=== PATIENT | male | born 1950 | race Caucasian/White ===

== ENCOUNTER → 2016-10-23 | Emergency (ER) | payer MEDICARE ==
[~2016-10-23] VITALS: Ht 182.9 cm; Wt 90.7 kg
[~2016-10-23] MED LIST: ALBUTEROL2.5 MG/3 M INH; ALDACTONE25 MG PO; ASPIRIN81 MG PO; ATORVASTATIN CA20 MG PO; AUGMENTIN 875-1 EACH PO; CALCIUM CARBON600 MG PO; CALCIUM500 M1 PO; CARVEDILOL3.125 MG PO; CLOPIDOGREL75 MG PO; COREG12.5 MG PO; CORICIDIN HBP1 EAC3 PO; COUMADIN2.5 MG PO; DEXAMETHASONE2 MG PO; FISH OIL 1,0001 EAC3 PO; FUROSEMIDE20 MG PO; GLUCOTROL XL5 MG PO; HUMALOG100 UNIT/2 SUB-Q; IRON325 M1 PO; KONSYL6 GM PO; LANTUS100 UNITS/ SUB-Q; LASIX20 MG PO; LEVETIRACETAM750 MG PO; LEVOTHYROXINE100 MCG PO; LEVOTHYROXINE25 MCG PO; LISINOPRIL10 MG PO; LISINOPRIL2.5 MG PO; MAGNESIUM OXID400 MG PO; METAMUCIL0.4 GM PO; METHYLPREDNISOLO4 M1 PO; MIRALAX119 GM PO; PANTOPRAZOLE SO40 MG PO; PLAVIX75 MG PO; POTASSIUM CHLO10 ME1 PO; POTASSIUM CHLO10 MEQ PO; SPIRONOLACTONE25 MG PO; TOUJEO SOL300 UNIT/1 SUB-Q; TUJEO; TYLENOL325 MG PO; VENTOLIN HFA18 GM INH; VITAMIN D1000 UNI1 PO; XANAX0.5 MG PO
--- NOTE | 2016-10-23 14:33 | NUR ---
ED STAFF REQUESTED I MEET WITH FAMILY. PT IS LEAVING TO [facility] VIA [facility]. MET WITH INDU AND DAUGHTER MAYUR AND G.SON. INFORMED THEM ON WHAT TO EXPECT, PRAYED WITH THEM AND STAYED UNTIL PT LEFT FOR [facility]. ALSO GAVE FAMILY LIFE [employer] LIST FOR ITEMS TO PACK TO TAKE WITH THEM. GOD BLESS
--- NOTE | 2016-10-23 19:27 | EKG ---
[facility] [address] [address] [place], [place] [address] Signed Normal sinus rhythm Left axis deviation Abnormal ECG No previous ECGs available Confirmed by LAMAR CHEEK MD ([id number]) on 10/23/2016 7:26:48 PM Electronically Signed By: LAMAR CHEEK MD 10/23/16 192 PATIENT NAME: JAZMYNE MARTINES SR Electrocardiogram DATE OF : 46 PHYSICIAN: LAMAR CHEEK MD REPORT #: [id number] REPORT IS CONFIDENTIAL AND NOT TO BE RELEASED WITHOUT AUTHORIZATION
== END ==
LOC: ED 12:53
DX: I61.1 Nontraumatic intracerebral hemorrhage in hemisphere, cortical (principal); D68.318 Other hemorrhagic disorder due to intrinsic circulating anticoagulants, antibodies, or inhibitors; E11.9 Type 2 diabetes mellitus without complications; I10 Essential (primary) hypertension; Z79.82 Long term (current) use of aspirin; Z79.84 Long term (current) use of oral hypoglycemic drugs; Z79.899 Other long term (current) drug therapy
CPT/HCPCS: 71010; 80053; 84484; 85025; 85610; 85730; 93005; 93010; 96374; 99291; J1100

== ENCOUNTER 2016-11-21 06:20 | Emergency (ER) | payer MEDICARE ==
[~2016-11-21] VITALS: Ht 182.9 cm; Wt 84.4 kg
[~2016-11-21 06:20] MED LIST changes: -ALBUTEROL2.5 MG/3 M INH; -AUGMENTIN 875-1 EACH PO; -CALCIUM CARBON600 MG PO; -CALCIUM500 M1 PO; -CARVEDILOL3.125 MG PO; -CLOPIDOGREL75 MG PO; -CORICIDIN HBP1 EAC3 PO; -COUMADIN2.5 MG PO; -DEXAMETHASONE2 MG PO; -FISH OIL 1,0001 EAC3 PO; -FUROSEMIDE20 MG PO; -HUMALOG100 UNIT/2 SUB-Q; -KONSYL6 GM PO; -LANTUS100 UNITS/ SUB-Q; -LASIX20 MG PO; -LEVETIRACETAM750 MG PO; -LEVOTHYROXINE25 MCG PO; -LISINOPRIL2.5 MG PO; -MAGNESIUM OXID400 MG PO; -METHYLPREDNISOLO4 M1 PO; -MIRALAX119 GM PO; -PANTOPRAZOLE SO40 MG PO; -POTASSIUM CHLO10 ME1 PO; -POTASSIUM CHLO10 MEQ PO; -SPIRONOLACTONE25 MG PO; -TOUJEO SOL300 UNIT/1 SUB-Q; -TUJEO; -TYLENOL325 MG PO; -VENTOLIN HFA18 GM INH; -XANAX0.5 MG PO
[2016-11-21] MEDS ORDERED: CALCIUM CARBON600 MG PO (06:38)
[2016-11-21] MEDS ORDERED: DEXAMETHASONE2 MG PO (06:40)
[2016-11-21] MEDS ORDERED: LANTUS100 UNITS/ SUB-Q (06:43)
[2016-11-21] MEDS ORDERED: MIRALAX119 GM PO (06:44)
[2016-11-21] MEDS ORDERED: LEVETIRACETAM750 MG PO (06:46)
[2016-11-21] MEDS ORDERED: VENTOLIN HFA18 GM INH (10:20)
--- NOTE | 2016-11-21 14:19 | NUR ---
MET WITH PT AND FAMILY IN ED. PT WAS ALERT AND RELATIVELY ORIENTED. INDU AND DAUGHTER MAYUR SEEMED STRESSED AND CONCERNED. PT WAS DC'D FROM [facility] YESTERDAY, WAS IN DISTRESS TODAY. WAITING FOR TESTS I STAYED AND COMFORTED THE FAMILY. PT GIVEN ALBUTEROL AND SEEMED TO HELP. HE SAID HE WAS NOT IN ANY PAIN- DID NOT BELIEVE HIM. PT DC'D WILL CONTINUE TO TRACK AND CHECK. HAD PRAYER WITH PT AND FAMILY-THEY EXPRESSED THANKFULNESS.GOD BLESS
--- NOTE | 2016-11-21 21:56 | EKG ---
[facility] [address] [place] [address] Signed Sinus rhythm with occasional premature ventricular complexes Low voltage QRS Left anterior fascicular block Anterolateral infarct with ST-T elevation in Anterolateral leads. No reciprocal changes. Consider Acute Coronary Syndrome/ STEMI. Abnormal ECG When compared with ECG of 23-OCT-2016 13:13, Significant changes have occurred Confirmed by LAMAR CHEEK MD ([id number]) on 11/21/2016 9:55:52 PM Electronically Signed By: LAMAR CHEEK MD 11/21/16 2156 PATIENT NAME: MALCOLMJAZMYNE CONSTANTINO SR Electrocardiogram DATE OF : 46 PHYSICIAN: LAMAR CHEEK MD REPORT #: [id number] REPORT IS CONFIDENTIAL AND NOT TO BE RELEASED WITHOUT AUTHORIZATION
[2016-11-22] MEDS ORDERED: LASIX20 MG PO (06:42)
[2016-11-22] MEDS ORDERED: POTASSIUM CHLO10 MEQ PO (06:42)
[2016-11-22] MEDS ORDERED: ALBUTEROL2.5 MG/3 M INH (06:42)
[2016-11-24] MEDS ORDERED: FISH OIL 1,0001 EAC3 PO (14:46)
[2016-11-24] MEDS ORDERED: PLAVIX75 MG PO (14:47)
[2016-12-20] MEDS ORDERED: CORICIDIN HBP1 EAC3 PO (09:43)
[2017-01-09] MEDS ORDERED: LISINOPRIL10 MG PO (13:23)
[2017-01-09] MEDS ORDERED: SPIRONOLACTONE25 MG PO (13:24)
[2017-01-16] MEDS ORDERED: TUJEO (13:14)
[2017-01-16] MEDS ORDERED: POTASSIUM CHLO10 ME1 PO (13:15)
[2017-01-16] MEDS ORDERED: COUMADIN2.5 MG PO (13:16)
[2017-01-16] MEDS ORDERED: TOUJEO SOL300 UNIT/1 SUB-Q (13:16)
[2017-02-04] MEDS ORDERED: SPIRONOLACTONE25 MG PO (09:56)
[2017-02-06] MEDS ORDERED: TYLENOL325 MG PO (14:58)
[2017-02-06] MEDS ORDERED: CALCIUM500 M1 PO (14:59)
[2017-02-06] MEDS ORDERED: CARVEDILOL3.125 MG PO ×2 (15:00→15:18)
[2017-02-06] MEDS ORDERED: LEVOTHYROXINE25 MCG PO ×2 (15:02→15:20)
[2017-02-06] MEDS ORDERED: LISINOPRIL2.5 MG PO (15:07)
[2017-02-06] MEDS ORDERED: HUMALOG100 UNIT/2 SUB-Q (15:07)
[2017-02-06] MEDS ORDERED: MAGNESIUM OXID400 MG PO ×2 (15:08→15:19)
[2017-02-06] MEDS ORDERED: PANTOPRAZOLE SO40 MG PO ×2 (15:08→15:20)
[2017-02-06] MEDS ORDERED: CLOPIDOGREL75 MG PO (15:09)
[2017-02-06] MEDS ORDERED: FUROSEMIDE20 MG PO ×2 (15:09→15:19)
[2017-02-06] MEDS ORDERED: VITAMIN D1000 UNI1 PO (15:10)
[2017-02-06] MEDS ORDERED: KONSYL6 GM PO (15:10)
[2017-02-06] MEDS ORDERED: COUMADIN2.5 MG PO ×2 (15:18→15:40)
[2017-02-06] MEDS ORDERED: POTASSIUM CHLO10 ME1 PO (15:19)
[2017-02-06] MEDS ORDERED: LEVETIRACETAM750 MG PO (15:19)
== END 2016-11-21 10:10 | disposition home or self-care (01) ==
LOC: ED 06:20
DX: R06.00 Dyspnea, unspecified (principal); I12.9 Hypertensive chronic kidney disease with stage 1 through stage 4 chronic kidney disease, or unspecified chronic kidney disease; N18.3 Chronic kidney disease, stage 3 (moderate); E11.22 Type 2 diabetes mellitus with diabetic chronic kidney disease; E03.9 Hypothyroidism, unspecified; Z87.891 Personal history of nicotine dependence; Z95.5 Presence of coronary angioplasty implant and graft; Z79.899 Other long term (current) drug therapy; Z79.4 Long term (current) use of insulin
CPT/HCPCS: 71010; 80053; 83735; 83880; 84484; 85025; 85379; 93005; 93010; 94640; 99284

== ENCOUNTER 2016-11-22 05:05 | Emergency (ER) | payer MEDICARE ==
[~2016-11-22] VITALS: Ht 182.9 cm; Wt 84.4 kg
[~2016-11-22 05:05] MED LIST changes: +CALCIUM CARBON600 MG PO; +DEXAMETHASONE2 MG PO; +LANTUS100 UNITS/ SUB-Q; +LEVETIRACETAM750 MG PO; +MIRALAX119 GM PO; +VENTOLIN HFA18 GM INH
[2016-11-22] MEDS ORDERED: LASIX20 MG PO (06:42)
[2016-11-22] MEDS ORDERED: ALBUTEROL2.5 MG/3 M INH (06:42)
[2016-11-22] MEDS ORDERED: POTASSIUM CHLO10 MEQ PO (06:42)
--- NOTE | 2016-11-22 23:25 | EKG ---
[facility] [address] [place] [address] Signed Sinus rhythm with blocked premature atrial complexes with premature supraventricular complexes and with occasional premature ventricular complexes Left anterior fascicular block Anterolateral infarct (cited on or before 21-NOV-2016) ST elevation in V2 V3 V4 V5 , similar to 11/21/16 EKG Abnormal ECG When compared with ECG of 21-NOV-2016 06:34, premature supraventricular complexes are now present Confirmed by LAMAR CHEEK MD ([id number]) on 11/22/2016 11:25:41 PM Electronically Signed By: LAMAR CHEEK MD 11/22/16 2325 PATIENT NAME: CONRAD KAPOORJAZMYNE SIMMS Electrocardiogram DATE OF : 46 PHYSICIAN: LAMAR CHEEK MD REPORT #: [id number] REPORT IS CONFIDENTIAL AND NOT TO BE RELEASED WITHOUT AUTHORIZATION
[2016-11-24] MEDS ORDERED: FISH OIL 1,0001 EAC3 PO (14:46)
[2016-11-24] MEDS ORDERED: PLAVIX75 MG PO (14:47)
[2016-12-20] MEDS ORDERED: CORICIDIN HBP1 EAC3 PO (09:43)
[2017-01-09] MEDS ORDERED: LISINOPRIL10 MG PO (13:23)
[2017-01-09] MEDS ORDERED: SPIRONOLACTONE25 MG PO (13:24)
[2017-01-16] MEDS ORDERED: TUJEO (13:14)
[2017-01-16] MEDS ORDERED: POTASSIUM CHLO10 ME1 PO (13:15)
[2017-01-16] MEDS ORDERED: COUMADIN2.5 MG PO (13:16)
[2017-01-16] MEDS ORDERED: TOUJEO SOL300 UNIT/1 SUB-Q (13:16)
[2017-02-04] MEDS ORDERED: SPIRONOLACTONE25 MG PO (09:56)
[2017-02-06] MEDS ORDERED: TYLENOL325 MG PO (14:58)
[2017-02-06] MEDS ORDERED: CALCIUM500 M1 PO (14:59)
[2017-02-06] MEDS ORDERED: CARVEDILOL3.125 MG PO ×2 (15:00→15:18)
[2017-02-06] MEDS ORDERED: LEVOTHYROXINE25 MCG PO ×2 (15:02→15:20)
[2017-02-06] MEDS ORDERED: HUMALOG100 UNIT/2 SUB-Q (15:07)
[2017-02-06] MEDS ORDERED: LISINOPRIL2.5 MG PO (15:07)
[2017-02-06] MEDS ORDERED: PANTOPRAZOLE SO40 MG PO ×2 (15:08→15:20)
[2017-02-06] MEDS ORDERED: MAGNESIUM OXID400 MG PO ×2 (15:08→15:19)
[2017-02-06] MEDS ORDERED: CLOPIDOGREL75 MG PO (15:09)
[2017-02-06] MEDS ORDERED: FUROSEMIDE20 MG PO ×2 (15:09→15:19)
[2017-02-06] MEDS ORDERED: KONSYL6 GM PO (15:10)
[2017-02-06] MEDS ORDERED: VITAMIN D1000 UNI1 PO (15:10)
[2017-02-06] MEDS ORDERED: COUMADIN2.5 MG PO ×2 (15:18→15:40)
[2017-02-06] MEDS ORDERED: LEVETIRACETAM750 MG PO (15:19)
[2017-02-06] MEDS ORDERED: POTASSIUM CHLO10 ME1 PO (15:19)
== END 2016-11-22 07:05 | disposition home or self-care (01) ==
LOC: ED 05:05
DX: I13.0 Hypertensive heart and chronic kidney disease with heart failure and stage 1 through stage 4 chronic kidney disease, or unspecified chronic kidney disease (principal); I50.9 Heart failure, unspecified; N18.3 Chronic kidney disease, stage 3 (moderate); E11.22 Type 2 diabetes mellitus with diabetic chronic kidney disease; C80.1 Malignant (primary) neoplasm, unspecified; I25.2 Old myocardial infarction; E03.9 Hypothyroidism, unspecified; Z98.890 Other specified postprocedural states; Z79.82 Long term (current) use of aspirin; Z79.899 Other long term (current) drug therapy; Z79.4 Long term (current) use of insulin; Z87.891 Personal history of nicotine dependence
CPT/HCPCS: 71010; 80053; 83880; 84484; 85025; 93005; 93010; 99284

== ENCOUNTER → 2017-01-16 | Emergency (ER) | payer MEDICARE ==
[~2017-01-16] VITALS: Ht 180.3 cm; Wt 77.1 kg
[~2017-01-16] MED LIST changes: +ALBUTEROL2.5 MG/3 M INH; +AUGMENTIN 875-1 EACH PO; +CALCIUM500 M1 PO; +CARVEDILOL3.125 MG PO; +CLOPIDOGREL75 MG PO; +CORICIDIN HBP1 EAC3 PO; +COUMADIN2.5 MG PO; +FISH OIL 1,0001 EAC3 PO; +FUROSEMIDE20 MG PO; +HUMALOG100 UNIT/2 SUB-Q; +KONSYL6 GM PO; +LASIX20 MG PO; +LEVOTHYROXINE25 MCG PO; +LISINOPRIL2.5 MG PO; +MAGNESIUM OXID400 MG PO; +METHYLPREDNISOLO4 M1 PO; +PANTOPRAZOLE SO40 MG PO; +POTASSIUM CHLO10 ME1 PO; +POTASSIUM CHLO10 MEQ PO; +SPIRONOLACTONE25 MG PO; +TOUJEO SOL300 UNIT/1 SUB-Q; +TUJEO; +TYLENOL325 MG PO; +XANAX0.5 MG PO
--- NOTE | 2017-01-16 16:33 | EKG ---
[facility] [address] [facility] [place] [address] Signed Atrial fibrillation with rapid ventricular response Left anterior fascicular block Anteroseptal infarct (cited on or before 21-NOV-2016) Abnormal ECG When compared with ECG of 22-NOV-2016 05:31, Atrial fibrillation has replaced Sinus rhythm Questionable change in initial forces of Lateral leads ST elevation now present in Anterior leads T wave inversion less evident in Anterior leads Confirmed by YASMIN CARTER MD ([id number]) on 01/16/2017 4:32:58 PM Electronically Signed By: YASMIN CARTER MD 01/16/17 1633 PATIENT NAME: CONRAD KAPOORJAZMYNE SIMMS Electrocardiogram DATE OF : 46 PHYSICIAN: YASMIN CARTER MD REPORT #: [id number] REPORT IS CONFIDENTIAL AND NOT TO BE RELEASED WITHOUT AUTHORIZATION
== END ==
LOC: ED 12:36
DX: I48.91 Unspecified atrial fibrillation (principal); C80.1 Malignant (primary) neoplasm, unspecified; I25.2 Old myocardial infarction; I12.9 Hypertensive chronic kidney disease with stage 1 through stage 4 chronic kidney disease, or unspecified chronic kidney disease; E11.22 Type 2 diabetes mellitus with diabetic chronic kidney disease; N18.3 Chronic kidney disease, stage 3 (moderate); Z87.891 Personal history of nicotine dependence; E03.9 Hypothyroidism, unspecified; Z79.899 Other long term (current) drug therapy; Z79.4 Long term (current) use of insulin; Z79.01 Long term (current) use of anticoagulants; Z98.890 Other specified postprocedural states
CPT/HCPCS: 70450; 71010; 71260; 80053; 81001; 84484; 85025; 85610; 86850; 86900; 86901; 93005; 93010; 96361; 96374; 99291; J7040; Q9967

== ENCOUNTER 2017-02-02 16:18 | Inpatient (IN) | payer MEDICARE ==
[~2017-02-02] VITALS: Ht 180.3 cm; Wt 74.1 kg
[~2017-02-02 16:18] MED LIST changes: -AUGMENTIN 875-1 EACH PO; -CALCIUM500 M1 PO; -CARVEDILOL3.125 MG PO; -CLOPIDOGREL75 MG PO; -FUROSEMIDE20 MG PO; -HUMALOG100 UNIT/2 SUB-Q; -KONSYL6 GM PO; -LEVOTHYROXINE25 MCG PO; -LISINOPRIL2.5 MG PO; -MAGNESIUM OXID400 MG PO; -METHYLPREDNISOLO4 M1 PO; -PANTOPRAZOLE SO40 MG PO; -TYLENOL325 MG PO; -XANAX0.5 MG PO
[2017-02-04] MEDS ORDERED: LISINOPRIL10 MG PO (09:56)
[2017-02-04] MEDS ORDERED: SPIRONOLACTONE25 MG PO ×2 (09:56)
[2017-02-06] MEDS ORDERED: TYLENOL325 MG PO ×2 (14:58)
[2017-02-06] MEDS ORDERED: CALCIUM500 M1 PO ×2 (14:59)
[2017-02-06] MEDS ORDERED: CARVEDILOL3.125 MG PO ×4 (15:00→15:18)
[2017-02-06] MEDS ORDERED: LEVOTHYROXINE25 MCG PO ×4 (15:02→15:20)
[2017-02-06] MEDS ORDERED: LISINOPRIL2.5 MG PO ×2 (15:07)
[2017-02-06] MEDS ORDERED: HUMALOG100 UNIT/2 SUB-Q ×2 (15:07)
[2017-02-06] MEDS ORDERED: PANTOPRAZOLE SO40 MG PO ×4 (15:08→15:20)
[2017-02-06] MEDS ORDERED: MAGNESIUM OXID400 MG PO ×4 (15:08→15:19)
[2017-02-06] MEDS ORDERED: CLOPIDOGREL75 MG PO ×2 (15:09)
[2017-02-06] MEDS ORDERED: FUROSEMIDE20 MG PO ×4 (15:09→15:19)
[2017-02-06] MEDS ORDERED: KONSYL6 GM PO ×2 (15:10)
[2017-02-06] MEDS ORDERED: VITAMIN D1000 UNI1 PO ×2 (15:10)
[2017-02-06] MEDS ORDERED: COUMADIN2.5 MG PO ×4 (15:18→15:40)
[2017-02-06] MEDS ORDERED: LEVETIRACETAM750 MG PO ×2 (15:19)
[2017-02-06] MEDS ORDERED: POTASSIUM CHLO10 ME1 PO ×2 (15:19)
== END 2017-02-06 16:20 | disposition home or self-care (01) | DRG 309 ==
LOC: MS 16:18
PROVIDERS: ADMIT Internal Medicine
DX: I48.1 Persistent atrial fibrillation (principal); C34.90 Malignant neoplasm of unspecified part of unspecified bronchus or lung; C79.31 Secondary malignant neoplasm of brain; I24.0 Acute coronary thrombosis not resulting in myocardial infarction; I50.20 Unspecified systolic (congestive) heart failure; E03.9 Hypothyroidism, unspecified; E11.9 Type 2 diabetes mellitus without complications; I11.0 Hypertensive heart disease with heart failure; I95.9 Hypotension, unspecified; R53.1 Weakness; Z74.8 Other problems related to care provider dependency; Z87.891 Personal history of nicotine dependence; Z66 Do not resuscitate; I25.2 Old myocardial infarction; I27.20 Pulmonary hypertension, unspecified; Z79.01 Long term (current) use of anticoagulants; Z79.4 Long term (current) use of insulin
CPT/HCPCS: 83735; 85610; 92523; 97110; 97116; 97163; G9168; G9169

== ENCOUNTER 2017-02-09 14:41 | Emergency (ER) | payer MEDICARE ==
[~2017-02-09] VITALS: Ht 180.3 cm; Wt 73.9 kg
[~2017-02-09 14:41] MED LIST changes: +CALCIUM500 M1 PO; +CARVEDILOL3.125 MG PO; +CLOPIDOGREL75 MG PO; +FUROSEMIDE20 MG PO; +HUMALOG100 UNIT/2 SUB-Q; +KONSYL6 GM PO; +LEVOTHYROXINE25 MCG PO; +LISINOPRIL2.5 MG PO; +MAGNESIUM OXID400 MG PO; +PANTOPRAZOLE SO40 MG PO; +TYLENOL325 MG PO
[2017-02-09] MEDS ORDERED: XANAX0.5 MG PO (16:06)
[2017-02-09] MEDS ORDERED: AUGMENTIN 875-1 EACH PO (16:25)
[2017-02-09] MEDS ORDERED: METHYLPREDNISOLO4 M1 PO (18:29)
== END 2017-02-09 16:29 | disposition home or self-care (01) ==
LOC: ED 14:41
DX: R06.02 Shortness of breath (principal); I12.9 Hypertensive chronic kidney disease with stage 1 through stage 4 chronic kidney disease, or unspecified chronic kidney disease; E11.22 Type 2 diabetes mellitus with diabetic chronic kidney disease; N18.3 Chronic kidney disease, stage 3 (moderate); I25.2 Old myocardial infarction; Z87.891 Personal history of nicotine dependence; Z98.890 Other specified postprocedural states; Z79.899 Other long term (current) drug therapy; Z79.01 Long term (current) use of anticoagulants; Z79.4 Long term (current) use of insulin
CPT/HCPCS: 71020; 80048; 85025; 85610; 99283

== ENCOUNTER 2017-02-09 17:24 | Emergency (ER) | payer MEDICARE ==
[~2017-02-09] VITALS: Ht 180.3 cm; Wt 73.9 kg
[~2017-02-09 17:24] MED LIST changes: +AUGMENTIN 875-1 EACH PO; +XANAX0.5 MG PO
[2017-02-09] MEDS ORDERED: METHYLPREDNISOLO4 M1 PO (18:29)
== END 2017-02-09 18:57 | disposition home or self-care (01) ==
LOC: ED 17:24
DX: R06.02 Shortness of breath (principal); F41.9 Anxiety disorder, unspecified; I12.9 Hypertensive chronic kidney disease with stage 1 through stage 4 chronic kidney disease, or unspecified chronic kidney disease; E11.22 Type 2 diabetes mellitus with diabetic chronic kidney disease; N18.3 Chronic kidney disease, stage 3 (moderate); E03.9 Hypothyroidism, unspecified; I25.2 Old myocardial infarction; Z87.891 Personal history of nicotine dependence; Z98.890 Other specified postprocedural states; Z79.899 Other long term (current) drug therapy; Z79.01 Long term (current) use of anticoagulants; Z79.4 Long term (current) use of insulin; Z79.52 Long term (current) use of systemic steroids
CPT/HCPCS: 94640; 96374; 96375; 99283; J0696; J2060; J2930

== ENCOUNTER 2017-03-12 05:19 | Emergency (ER) | payer MEDICARE ==
[~2017-03-12] VITALS: Ht 180.3 cm; Wt 73.9 kg
[~2017-03-12 05:19] MED LIST changes: +METHYLPREDNISOLO4 M1 PO
--- NOTE | 2017-03-12 07:43 | EKG ---
[facility] [address] [facility] [facility] [address] [facility] [place] [address] Signed Atrial fibrillation Left axis deviation Low voltage QRS Anterolateral infarct (cited on or before 21-NOV-2016) Abnormal ECG When compared with ECG of 16-JAN-2017 13:24, Questionable change in initial forces of Lateral leads ST no longer elevated in Anterior leads Nonspecific T wave abnormality now evident in Inferior leads T wave inversion no longer evident in Anterolateral leads Confirmed by YASMIN CARTER MD ([id number]) on 03/12/2017 7:42:59 AM Electronically Signed By: YASMIN CARTER MD 03/12/17 0743 PATIENT NAME: JAZMYNE MARTINES Electrocardiogram DATE OF : 46 PHYSICIAN: YASMIN CARTER MD REPORT #: [id number] REPORT IS CONFIDENTIAL AND NOT TO BE RELEASED WITHOUT AUTHORIZATION
== END 2017-03-12 10:11 | disposition short-term general hospital (02) ==
LOC: ED 05:19
DX: R07.9 Chest pain, unspecified (principal); E86.0 Dehydration; E03.9 Hypothyroidism, unspecified; I12.9 Hypertensive chronic kidney disease with stage 1 through stage 4 chronic kidney disease, or unspecified chronic kidney disease; E11.22 Type 2 diabetes mellitus with diabetic chronic kidney disease; N18.3 Chronic kidney disease, stage 3 (moderate); E78.5 Hyperlipidemia, unspecified; F41.9 Anxiety disorder, unspecified; Z95.5 Presence of coronary angioplasty implant and graft; Z98.890 Other specified postprocedural states; Z85.841 Personal history of malignant neoplasm of brain; Z79.2 Long term (current) use of antibiotics; Z79.899 Other long term (current) drug therapy; Z79.01 Long term (current) use of anticoagulants; Z79.4 Long term (current) use of insulin
CPT/HCPCS: 71045; 80053; 84484; 85025; 93005; 93010; 99285; J7040